=== PATIENT | male | born 1970 | race Caucasian/White ===

== ENCOUNTER 2023-10-30 17:45 | Emergency (ER) | payer MEDICAID ==
[2023-10-30] MEDS ORDERED: Metoclopramide HCl 10 MG (2 mL) VIAL ONE (20:54)
[2023-10-30] MEDS ORDERED: Ondansetron PF 4 MG/2 ML Vial ONE (20:55)
[2023-10-30] MEDS ORDERED: Morphine 10 MG/ML VIAL ONE (20:55)
[2023-10-30 21:26] LABS: Hematocrit 35.2 % (42.0-52.0); Hemoglobin 11.3 g/dL (14.0-18.0); Mean Corpuscular HGB CONC 32.1 g/dL (32.0-36.0); Mean Corpuscular Hemoglobin 28.9 pg (27.0-31.0); Platelet Count 113 10x3/uL (130-400); RBC Distribution Width 13.4 % (11.5-14.5); Red Blood Cell (RBC) Count 3.91 mill/uL (4.70-6.10)
[2023-10-30 21:34] LABS: ALT (SGPT) 112 U/L (8-55); AST (SGOT) 52 U/L (5-34); Alkaline Phosphatase 487 U/L (40-110); Anion Gap 13 mmol/L (10-20); BUN (Urea Nitrogen) 14 mg/dL (8.4-25.7); Bilirubin, Total 0.9 mg/dL (0.2-1.2); Calc. Creatinine Clearance 0 mL/min (70-130); Calcium 9.1 mg/dL (7.8-10.44); Carbon Dioxide 27 mmol/L (22-29); Chloride 104 mmol/L (98-107); Estimated GFR 104; Glucose 105 mg/dL (70-105); Lipase 42 U/L (8-78); Potassium 3.2 mmol/L (3.5-5.1); Sodium 141 mmol/L (136-145)
[2023-10-30 21:58] LABS: Band 8 % (5-11); Dohle Bodies MODERATE; Eosinophils 2 % (0-10); Lymphocytes 18 % (21-51); Monocytes 3 % (0-10); Neutrophil 69 % (42-75); Platelet Adequacy Comment Platelets Decreased; RBC Morphology Within Normal Limits; Toxic Granulation SLIGHT
[2023-10-30] MEDS ORDERED: Lidocaine 2% Viscous 10 mL, Alum & Magn 30 mL SSW SCH (22:00)
== END 2023-10-30 22:50 | disposition home or self-care (01) ==
LOC: ERS 17:45
DX: K52.9 Noninfective gastroenteritis and colitis, unspecified (principal); C25.9 Malignant neoplasm of pancreas, unspecified; R11.2 Nausea with vomiting, unspecified
CPT/HCPCS: 74176; 80053; 83690; 85025; 93005; 96374; 96375; J1642; J2270; J2405; J2765

== ENCOUNTER 2023-11-11 13:26 | Inpatient (IN) | payer MEDICAID ==
[~2023-11-11 13:26] MED LIST: Iopamidol 370 76% 100 ML VIAL ONE
[2023-11-11] MEDS ORDERED: Morphine 4 MG/ML VIAL ONE (13:58)
[2023-11-11] MEDS ORDERED: Famotidine/PF 20 mg/2ml Vial ONE (13:58)
[2023-11-11] MEDS ORDERED: Ondansetron PF 4 MG/2 ML Vial ONE ×2 (13:58→16:10)
[2023-11-11 14:09] LABS: INR-International Normal Ratio 1.1
[2023-11-11 14:10] LABS: PTT 27.5 sec (22.9-36.1)
[2023-11-11 14:11] LABS: Hematocrit 40.6 % (42.0-52.0); Hemoglobin 13.3 g/dL (14.0-18.0); Mean Corpuscular HGB CONC 32.8 g/dL (32.0-36.0); Mean Corpuscular Hemoglobin 29.4 pg (27.0-31.0); Mean Corpuscular Volume 89.8 fL (78.0-98.0); Platelet Count 186 10x3/uL (130-400); RBC Distribution Width 14.9 % (11.5-14.5); Red Blood Cell (RBC) Count 4.52 mill/uL (4.70-6.10)
[2023-11-11 14:12] LABS: ALT (SGPT) 118 U/L (8-55); AST (SGOT) 67 U/L (5-34); Albumin 3.1 g/dL (3.5-5.0); Alkaline Phosphatase 704 U/L (40-110); Anion Gap 13 mmol/L (10-20); BUN (Urea Nitrogen) 19 mg/dL (8.4-25.7); Bilirubin, Total 0.8 mg/dL (0.2-1.2); Calc. Creatinine Clearance 0 mL/min (70-130); Calcium 9.4 mg/dL (7.8-10.44); Carbon Dioxide 25 mmol/L (22-29); Chloride 107 mmol/L (98-107); Estimated GFR 103; Globulin 3.1 g/dL (2.4-3.5); Glucose 113 mg/dL (70-105); Magnesium 2.1 mg/dL (1.6-2.6); Protein, Total 6.2 g/dL (6.0-8.3); Sodium 141 mmol/L (136-145)
[2023-11-11 14:33] LABS: Band 11 % (5-11); Lymphocytes 3 % (21-51); Neutrophil 86 % (42-75); Platelet Adequacy Comment Platelets Normal; Polychromasia SLIGHT = 2-3 cells HPF (0-2); Toxic Granulation SLIGHT; Vacuoles SLIGHT
[2023-11-11] MEDS ORDERED: Acetaminophen 325 MG TAB PO PRN (17:04)
[2023-11-11] MEDS ORDERED: Nicotine 21 MG PATCH TD PRN (17:04)
[2023-11-11] MEDS ORDERED: Benzocaine/Menthol 1 LOZ LOZ PO PRN (17:13)
[2023-11-11] MEDS ORDERED: Phenol 177 ML BOT PO PRN (17:13)
[2023-11-11] MEDS: Ondansetron PF 4 MG/2 ML Vial IVP SCH (18:20)
[2023-11-11] MEDS: Pantoprazole 40 MG VIAL IVP SCH (18:21)
[2023-11-11] MEDS: Morphine 4 MG/ML VIAL SLOW IVP PRN (18:21)
[2023-11-11] MEDS: Piperacillin/Tazobactam 3.375 GM in Sodium Chloride 0.9% 100 ML IVPB SCH ×2 (18:21→22:47)
[2023-11-11] MEDS: Potassium Chloride 20 MEQ in Lactated Ringer's 1,000 ML IV SCH (20:04)
[2023-11-11] MEDS: HYDROcodone/Acetaminophen 10/325 mg Tablet PO PRN (20:04)
[2023-11-11] MEDS: FLUoxetine HCl 20 MG CAP PO SCH (20:14)
[2023-11-11] MEDS: Promethazine HCl 12.5 MG in Sodium Chloride 0.9% 50 ML IVPB PRN (22:20)
[2023-11-12 06:30] LABS: Hematocrit 32.7 % (42.0-52.0); Hemoglobin 10.5 g/dL (14.0-18.0); Mean Corpuscular HGB CONC 32.1 g/dL (32.0-36.0); Mean Corpuscular Hemoglobin 29.5 pg (27.0-31.0); Mean Corpuscular Volume 91.9 fL (78.0-98.0); Mean Platelet Volume 10.9 fL (7.4-10.4); Platelet Count 142 10x3/uL (130-400); RBC Distribution Width 14.7 % (11.5-14.5); Red Blood Cell (RBC) Count 3.56 mill/uL (4.70-6.10)
[2023-11-12 06:38] LABS: ALT (SGPT) 86 U/L (8-55); AST (SGOT) 48 U/L (5-34); Albumin 2.5 g/dL (3.5-5.0); Alkaline Phosphatase 544 U/L (40-110); Anion Gap 10 mmol/L (10-20); BUN (Urea Nitrogen) 18 mg/dL (8.4-25.7); Bilirubin, Total 0.7 mg/dL (0.2-1.2); Calc. Creatinine Clearance 0 mL/min (70-130); Calcium 8.4 mg/dL (7.8-10.44); Carbon Dioxide 24 mmol/L (22-29); Chloride 109 mmol/L (98-107); Estimated GFR 106; Globulin 2.4 g/dL (2.4-3.5); Glucose 94 mg/dL (70-105); Potassium 3.9 mmol/L (3.5-5.1); Protein, Total 4.9 g/dL (6.0-8.3); Sodium 139 mmol/L (136-145)
[2023-11-12 07:15] LABS: Band 4 % (5-11); Lymphocytes 11 % (21-51); Neutrophil 85 % (42-75); Platelet Adequacy Comment Platelets Normal; RBC Morphology Within Normal Limits; Toxic Granulation SLIGHT
[2023-11-12] MEDS: Pantoprazole 40 MG VIAL IVP SCH (10:08)
[2023-11-12] MEDS: Enoxaparin 40 MG (0.4 mL) SYRINGE SC SCH (10:08)
[2023-11-13] MEDS: Ondansetron PF 4 MG/2 ML Vial IVP PRN (08:45)
[2023-11-13] MEDS ORDERED: Dehydrated Alcohol 99% 5 ML VIAL FS SCH (10:45)
[2023-11-13] MEDS ORDERED: Dehydrated Alcohol 99% 5 ML VIAL ONE (10:55)
[2023-11-13] MEDS ORDERED: Lidocaine 1% w/Epinephrine 1:100K 20 ML VIAL ONE (14:31)
[2023-11-13] MEDS ORDERED: Sodium Bicarbonate 2.5 MEQ/5 ML SDV ONE (14:31)
[2023-11-13] MEDS ORDERED: fentaNYL 50 mcg/mL 1 mL Vial ONE (14:32)
[2023-11-13] MEDS ORDERED: Midazolam HCl 2 mg/2 ml Vial ONE (14:32)
[2023-11-13 14:55] LABS: Anion Gap 10 mmol/L (10-20); BUN (Urea Nitrogen) 11 mg/dL (8.4-25.7); Calc. Creatinine Clearance 0 mL/min (70-130); Calcium 8.4 mg/dL (7.8-10.44); Carbon Dioxide 23 mmol/L (22-29); Chloride 110 mmol/L (98-107); Estimated GFR 105; Glucose 113 mg/dL (70-105); Potassium 3.6 mmol/L (3.5-5.1); Sodium 139 mmol/L (136-145)
[2023-11-13 15:02] LABS: Lymphocytes 10 % (21-51); Monocytes 1 % (0-10); Neutrophil 88 % (42-75); Platelet Adequacy Comment Platelets Decreased; Toxic Granulation SLIGHT
[2023-11-13 15:03] LABS: Hematocrit 33.3 % (42.0-52.0); Hemoglobin 11.1 g/dL (14.0-18.0); Mean Corpuscular HGB CONC 33.3 g/dL (32.0-36.0); Mean Corpuscular Hemoglobin 29.7 pg (27.0-31.0); Mean Platelet Volume 10.8 fL (7.4-10.4); Platelet Count 113 10x3/uL (130-400); RBC Distribution Width 14.5 % (11.5-14.5); Red Blood Cell (RBC) Count 3.74 mill/uL (4.70-6.10)
[2023-11-13] MEDS ORDERED: Iopamidol 370 76% 100 ML VIAL ONE (15:17)
[2023-11-13] MEDS: Bupivacaine PF 0.5% 30 ML VIAL FS SCH (18:28)
[2023-11-14 07:15] LABS: Anion Gap 10 mmol/L (10-20); BUN (Urea Nitrogen) 11 mg/dL (8.4-25.7); Calc. Creatinine Clearance 0 mL/min (70-130); Calcium 8.6 mg/dL (7.8-10.44); Carbon Dioxide 22 mmol/L (22-29); Chloride 112 mmol/L (98-107); Estimated GFR 107; Glucose 100 mg/dL (70-105); Potassium 4.1 mmol/L (3.5-5.1); Sodium 140 mmol/L (136-145)
[2023-11-14 07:40] LABS: Hematocrit 32.8 % (42.0-52.0); Hemoglobin 10.7 g/dL (14.0-18.0); Mean Corpuscular HGB CONC 32.6 g/dL (32.0-36.0); Mean Corpuscular Hemoglobin 29.2 pg (27.0-31.0); Mean Corpuscular Volume 89.6 fL (78.0-98.0); Mean Platelet Volume 10.7 fL (7.4-10.4); Platelet Count 86 10x3/uL (130-400); RBC Distribution Width 14.6 % (11.5-14.5); Red Blood Cell (RBC) Count 3.66 mill/uL (4.70-6.10)
[2023-11-14 08:47] LABS: Band 9 % (5-11); Eosinophils 1 % (0-10); Lymphocytes 15 % (21-51); Monocytes 1 % (0-10); Neutrophil 74 % (42-75); Platelet Adequacy Comment Significant Decrease; RBC Morphology Within Normal Limits
[2023-11-14 08:58] VITALS: BP 122/88; TEMP 98
[2023-11-14 09:06] LABS: ALT (SGPT) 82 U/L (8-55); AST (SGOT) 78 U/L (5-34); Albumin 2.7 g/dL (3.5-5.0); Alkaline Phosphatase 557 U/L (40-110); Bilirubin, Direct 0.3 mg/dL (0.1-0.3); Bilirubin, Total 0.8 mg/dL (0.2-1.2); Protein, Total 5.2 g/dL (6.0-8.3)
[2023-11-14] MEDS: Ondansetron PF 4 MG/2 ML Vial IVP PRN (09:23)
== END 2023-11-14 13:18 | disposition home or self-care (01) | DRG 982 ==
LOC: ERS 13:26 → T4-A 16:43 → MSONC 11-12 15:39
PROVIDERS: ADMIT Family Medicine; ATTEND Student in an Organized Health Care Education/Training Program
PROC: 015M3ZZ Destruction of Abdominal Sympathetic Nerve, Percutaneous Approach (ICD-10-PCS; principal; 2023-11-13)
DX: K52.1 Toxic gastroenteritis and colitis (principal); C25.9 Malignant neoplasm of pancreas, unspecified; D84.9 Immunodeficiency, unspecified; J02.9 Acute pharyngitis, unspecified; T50.905A Adverse effect of unspecified drugs, medicaments and biological substances, initial encounter; F39 Unspecified mood [affective] disorder; K29.70 Gastritis, unspecified, without bleeding; F17.210 Nicotine dependence, cigarettes, uncomplicated; R74.01 Elevation of levels of liver transaminase levels; D64.9 Anemia, unspecified; Z98.890 Other specified postprocedural states; Z92.21 Personal history of antineoplastic chemotherapy
CPT/HCPCS: 36415; 49180; 74177; 77012; 80048; 80053; 80076; 83605; 83735; 85025; 85610; 85730; 87040; 93005; 96361; 96374; 96375; 96376; J0665; J1650; J2250; J2272; J2405; J2470; J2543; J2550; J3010; J3480; J3490; J7120; Q9967